=== PATIENT | female | born 1950 | race Caucasian/White ===

== ENCOUNTER → 2016-11-24 | Outpatient (CLI) | payer OTHER ==
[~2016-11-24] VITALS: Ht 167.6 cm; Wt 81.7 kg
[~2016-11-24] MED LIST: ADVAIR 250/501 DISK IH; AZOR 10/20 M1 TABLET PO; AZOR 5/40 MG1 TABLET PO; BENADRYL25 MG PO; CELECOXIB200 MG PO; CRESTOR10 MG PO; ERGOCALCIF50000 UNIT PO; FOLIC ACID1 MG PO; FORTEO20 MICROGR SC; IRON325 M1 PO; METHOTREXATE2.5 MG PO; ORENCIA125 MG/1 M SC; ORENCIA250 MG/10 IV; OXYCODONE HCL5 MG PO; PLAQUENIL200 MG PO; SENNA PLUS TAB1 EACH PO; SULFAZINE EC500 MG PO; VENTOLIN HFA18 GM IH; VITAMIN D PO; VOLTAREN75 MG PO; XARELTO10 MG PO
== END | disposition home or self-care (01) ==
LOC: AMB 09:58
PROC: 0DJD8ZZ Inspection of Lower Intestinal Tract, Via Natural or Artificial Opening Endoscopic (ICD-10-PCS; principal; 2016-11-24)
DX: Z12.11 Encounter for screening for malignant neoplasm of colon (principal); R19.5 Other fecal abnormalities; K57.30 Diverticulosis of large intestine without perforation or abscess without bleeding; M06.9 Rheumatoid arthritis, unspecified; Z92.25 Personal history of immunosuppression therapy; Z96.652 Presence of left artificial knee joint; Z88.0 Allergy status to penicillin; Z88.2 Allergy status to sulfonamides
CPT/HCPCS: 93005; J2250